=== PATIENT | female | born 1995 | race Caucasian/White ===

== ENCOUNTER 2019-11-24 12:05 | Emergency (ER) | payer SELFPAY ==
[~2019-11-24] VITALS: Ht 149.9 cm; Wt 76.5 kg
[2019-11-24 12:09] VITALS: BP 118/76
[2019-11-24] MEDS ORDERED: IBUPROFEN PO (12:44)
--- NOTE | 2019-11-24 14:16 | NUR ---
TASK RN: FIRST CONTACT WITH PT. Patient/Caregiver given discharge instructions and they have confirmed that they understand the instructions. Patient ambulatory with steady gait. PT LEFT WITH ALL PERSONAL BELONGINGS. PT CHOSE TO TAKE OFF AIR STIRRUP AND STATES "I'LL JUST PUT IT BACK ON WHEN I GET HOME. I KNOW HOW TO DO IT." MAKENNA.
== END 2019-11-24 14:18 | disposition home or self-care (01) ==
LOC: ED 13:11
DX: S40.011A Contusion of right shoulder, initial encounter (principal); S90.01XA Contusion of right ankle, initial encounter; S06.9X1A Unspecified intracranial injury with loss of consciousness of 30 minutes or less, initial encounter; W18.30XA Fall on same level, unspecified, initial encounter; Y93.89 Activity, other specified; Y92.009 Unspecified place in unspecified non-institutional (private) residence as the place of occurrence of the external cause; Y99.8 Other external cause status
CPT/HCPCS: 70450; 99284